=== PATIENT | male | born 1960 | race Two or more races ===

== ENCOUNTER 2021-03-07 09:43 | Day surgery (SDC) | payer OTHER ==
[~2021-03-07 09:43] MED LIST: CRESTOR5 MG PO; ROSUVAST PO; VITAMIN PO
[2021-03-07] MEDS ORDERED: PERCOCET 5-3251 EACH PO (15:45)
[2021-03-07] MEDS ORDERED: COLACE100 MG PO (15:45)
== END 2021-03-07 21:05 | disposition home or self-care (01) ==
LOC: CIR.AMB 09:43 → AMB-ENDOS 12:15 → CIR.AMB 12:15
PROVIDERS: ATTEND Surgery
DX: K60.1 Chronic anal fissure (principal); K62.4 Stenosis of anus and rectum; Z20.822 Contact with and (suspected) exposure to COVID-19